=== PATIENT | female | born 1975 | race Two or more races ===

== ENCOUNTER → 2023-06-10 | Emergency (ER) | payer OTHER ==
[~2023-06-10] VITALS: Ht 154.9 cm; Wt 78.5 kg
[~2023-06-10] MED LIST: AVAPRO75 MG PO; TOPROL XL50 M1 PO
== END | disposition left against medical advice (07) ==
LOC: ER 11:41 → EDBD 11:41 → ER 13:10
DX: Z53.21 Procedure and treatment not carried out due to patient leaving prior to being seen by health care provider (principal)